=== PATIENT | male | born 1935 | race Caucasian/White ===

== ENCOUNTER 2018-05-30 02:55 | Inpatient (IN) | payer MEDICARE ==
[~2018-05-30] VITALS: Ht 182.9 cm; Wt 64.7 kg
[~2018-05-30 02:55] MED LIST: CALC-362 PO; CHOL200040 PO; CIPR500T87 PO; DONE5TAB7 PO; MEMA28CA PO; METO25TA35 PO; OMEP-110 PO
[2018-05-30] MEDS ORDERED: AMLO10TA2 PO (03:19)
[2018-05-30] MEDS ORDERED: MEMA10TA PO (03:19)
[2018-05-30 03:43] LABS: ALANINE AMINOTRANSFERASE 14 U/L (12-78); ALBUMIN 3.2 g/dL (3.4-5.0); ANION GAP 7 mmol/L (5-15); CALCIUM 8.5 mg/dL (8.5-10.1); CHLORIDE 111 mmol/L (98-107); CREATININE 1.21 mg/dL (0.7-1.3)
[2018-05-30 03:45] LABS: ALKALINE PHOSPHATASE 64 U/L (45-117); BILIRUBIN,TOTAL 0.8 mg/dL (0.2-1.0); TOTAL PROTEIN 6.3 g/dL (6.4-8.2)
[2018-05-30 03:51] LABS: BASOPHILS # (AUTO) 0.08 x10^3/uL (0-0.1); BASOPHILS % (AUTO) 1 % (0-1); EOSINOPHILS # (AUTO) 0.39 x10^3/uL (0-0.4); EOSINOPHILS % (AUTO) 4 % (1-7); LYMPHOCYTES # (AUTO) 2.32 x10^3/uL (1-3.4); LYMPHOCYTES % (AUTO) 22 % (22-44); MD NO; MEAN CORPUSCULAR HEMOGLOBIN 30.8 pg (27.5-34.5); MEAN CORPUSCULAR HGB CONC 33.6 g/dL (33.2-36.2); MEAN CORPUSCULAR VOLUME 91.9 fL (81-97); MONOCYTES # (AUTO) 0.84 x10^3/uL (0.2-0.8); MONOCYTES % (AUTO) 8 % (2-9); NEUTROPHILS # (AUTO) 6.93 x10^3/uL (1.8-6.8); NEUTROPHILS % (AUTO) 66 % (42-75); PLATELET COUNT 251 x10^3/uL (130-400); RED BLOOD COUNT 4.72 x10^6/uL (4.38-5.82); RED CELL DISTRIBUTION WIDTH 13.9 % (9.4-14.8)
[2018-05-30 05:11] LABS: MICROSCOPIC AUTO
[2018-05-30 05:15] LABS: CULTURE INDICATED? NO
[2018-05-30] MEDS ORDERED: DOCUSATE 100 MG CAPSULE PO PRN (07:30)
[2018-05-30] MEDS ORDERED: ONDANSETRON 2MG/ML, 2ML IVPush PRN (07:30)
[2018-05-30] MEDS ORDERED: hydrALAzine 20 MG/ML, 1ML IVPush PRN (07:30)
[2018-05-30] MEDS ORDERED: PROMETHAZINE 25 MG/ML, 1ML IM PRN (07:30)
[2018-05-30] MEDS ORDERED: BISACODYL 10 MG SUPP PR PRN (07:30)
[2018-05-30] MEDS ORDERED: POLYETHYLENE GLYCOL 17 GM PACKET PO PRN (07:30)
[2018-05-30] MEDS ORDERED: ACETAMINOPHEN 325 MG TABLET PO PRN (07:30)
[2018-05-30] MEDS ORDERED: ONDANSETRON ODT 4 MG PO PRN (07:30)
[2018-05-30] MEDS ORDERED: POTASSIUM CHLORIDE 20 MEQ TAB.ER.PRT PO ONE (07:30)
[2018-05-30 07:32] VITALS: BP 161/98
[2018-05-30 08:04] LABS: FREE T4 (FREE THYROXINE) 1.12 ng/dL (0.76-1.46); THYROID STIMULATING HORMONE 3.1 mIU/L (0.358-3.740)
[2018-05-30 08:25] LABS: HEMOGLOBIN A1C 6.6 % (4.2-6.3)
[2018-05-30] MEDS ORDERED: AMLODIPINE BESYLATE PO SCH (09:00)
[2018-05-30] MEDS: SODIUM CHLORIDE 0.9% 1,000 ML IV SCH ×2 (09:39→18:42)
[2018-05-30] MEDS: AMLODIPINE 5 MG TABLET PO SCH (09:40)
[2018-05-30] MEDS: CHOLECALCIFEROL 1,000 UNIT TABLET PO SCH (09:41)
[2018-05-30] MEDS: MEMANTINE 10MG TABLET PO SCH (09:41)
[2018-05-30 13:00] VITALS: BP 170/72
[2018-05-30 17:53] VITALS: BP 152/72
[2018-05-30 19:43] VITALS: BP 159/73
[2018-05-30] MEDS: METOPROLOL TARTRATE 25 MG TABLET PO SCH (23:35)
[2018-05-31 02:55] VITALS: BP 146/68
[2018-05-31 05:33] LABS: BASOPHILS # (AUTO) 0.02 x10^3/uL (0-0.1); BASOPHILS % (AUTO) 0 % (0-1); EOSINOPHILS % (AUTO) 0 % (1-7); LYMPHOCYTES % (AUTO) 8 % (22-44); MD NO; MEAN CORPUSCULAR HEMOGLOBIN 30.7 pg (27.5-34.5); MEAN CORPUSCULAR HGB CONC 33.3 g/dL (33.2-36.2); MEAN CORPUSCULAR VOLUME 92.2 fL (81-97); MEAN PLATELET VOLUME 8.4 fL (7.4-10.4); MONOCYTES # (AUTO) 1.11 x10^3/uL (0.2-0.8); MONOCYTES % (AUTO) 7 % (2-9); NEUTROPHILS # (AUTO) 13.49 x10^3/uL (1.8-6.8); NEUTROPHILS % (AUTO) 85 % (42-75); PLATELET COUNT 271 x10^3/uL (130-400)
[2018-05-31 05:46] LABS: ALBUMIN 3.2 g/dL (3.4-5.0); ANION GAP 10 mmol/L (5-15); CALCIUM 8.4 mg/dL (8.5-10.1); CHLORIDE 114 mmol/L (98-107)
[2018-05-31 05:51] LABS: ALANINE AMINOTRANSFERASE 13 U/L (12-78); ALKALINE PHOSPHATASE 65 U/L (45-117); BILIRUBIN,TOTAL 1.5 mg/dL (0.2-1.0); CHOL/HDL RATIO 3.9; CHOLESTEROL, TOTAL 170 mg/dL (140-239); CREATININE 2.04 mg/dL (0.7-1.3); HDL CHOL % 26 % (26-37); HDL CHOLESTEROL (DIRECT) 44 mg/dL (40-60); LDL CHOLESTEROL,CALCULATED 109 mg/dL (54-169); LDL/HDL RATIO 2.5 (0.5-3.0); TOTAL PROTEIN 6.2 g/dL (6.4-8.2); TRIGLYCERIDES 84 mg/dL (50-200); VLDL CHOLESTEROL 17 mg/dL (0-25)
[2018-05-31 08:05] VITALS: BP 131/68
[2018-05-31] MEDS: MEMANTINE 10MG TABLET PO SCH (09:00)
[2018-05-31] MEDS: AMLODIPINE 5 MG TABLET PO SCH (09:00)
[2018-05-31] MEDS: CHOLECALCIFEROL 1,000 UNIT TABLET PO SCH (09:00)
[2018-05-31 10:07] LABS: ANION GAP 10 mmol/L (5-15); CALCIUM 8.3 mg/dL (8.5-10.1); CHLORIDE 115 mmol/L (98-107)
[2018-05-31] MEDS: SODIUM CHLORIDE 0.9% 1,000 ML IV SCH ×2 (12:45→20:36)
[2018-05-31 13:00] VITALS: BP 119/63
[2018-05-31 16:26] LABS: MICROSCOPIC INDICATED
[2018-05-31 16:48] LABS: CULTURE INDICATED? NO
[2018-05-31 18:34] VITALS: BP 114/63
[2018-05-31] MEDS: METOPROLOL TARTRATE 25 MG TABLET PO SCH (20:36)
[2018-06-01 00:12] VITALS: BP 108/52
[2018-06-01] MEDS: SODIUM CHLORIDE 0.9% 1,000 ML IV SCH (04:11)
[2018-06-01 06:57] VITALS: BP 151/75
[2018-06-01] MEDS: AMLODIPINE 5 MG TABLET PO SCH (09:51)
[2018-06-01] MEDS: MEMANTINE 10MG TABLET PO SCH (09:51)
[2018-06-01] MEDS: CHOLECALCIFEROL 1,000 UNIT TABLET PO SCH (09:51)
[2018-06-01 10:34] LABS: ANION GAP 8 mmol/L (5-15); CALCIUM 7.7 mg/dL (8.5-10.1); CHLORIDE 114 mmol/L (98-107)
[2018-06-01 12:18] VITALS: BP 112/62
[2018-06-01] MEDS ORDERED: SODIUM CHLORIDE 0.9% 1,000 ML IV ONE (16:00)
[2018-06-01 19:05] VITALS: BP 125/65
[2018-06-01] MEDS: METOPROLOL TARTRATE 25 MG TABLET PO SCH (20:11)
[2018-06-02] MEDS: QUETIAPINE 25MG TABLET PO SCH ×2 (00:05→21:00)
[2018-06-02 01:07] VITALS: BP 106/64
[2018-06-02 07:05] VITALS: BP 160/80
[2018-06-02] MEDS: AMLODIPINE 5 MG TABLET PO SCH (11:28)
[2018-06-02] MEDS: MEMANTINE 10MG TABLET PO SCH (11:28)
[2018-06-02] MEDS: CHOLECALCIFEROL 1,000 UNIT TABLET PO SCH (11:28)
[2018-06-02 14:30] VITALS: BP 128/80
[2018-06-02 19:06] VITALS: BP 142/66
[2018-06-02] MEDS: METOPROLOL TARTRATE 25 MG TABLET PO SCH (20:51)
[2018-06-03] MEDS ORDERED: ZIPRASIDONE 20 MG INJ IM ONE (00:30)
[2018-06-03 01:00] VITALS: BP 125/66
[2018-06-03 08:24] VITALS: BP 145/77
[2018-06-03] MEDS: AMLODIPINE 5 MG TABLET PO SCH (10:14)
[2018-06-03] MEDS: MEMANTINE 10MG TABLET PO SCH (10:14)
[2018-06-03] MEDS: CHOLECALCIFEROL 1,000 UNIT TABLET PO SCH (10:14)
[2018-06-03 15:09] VITALS: BP 130/74
[2018-06-03 19:19] VITALS: BP 118/75
[2018-06-03] MEDS: METOPROLOL TARTRATE 25 MG TABLET PO SCH (19:48)
[2018-06-03] MEDS: QUETIAPINE 25MG TABLET PO SCH (19:48)
[2018-06-04 00:40] VITALS: BP 120/75
[2018-06-04 06:10] LABS: BASOPHILS # (AUTO) 0.01 x10^3/uL (0-0.1); BASOPHILS % (AUTO) 0 % (0-1); EOSINOPHILS # (AUTO) 0.44 x10^3/uL (0-0.4); EOSINOPHILS % (AUTO) 4 % (1-7); LYMPHOCYTES # (AUTO) 2.18 x10^3/uL (1-3.4); LYMPHOCYTES % (AUTO) 17 % (22-44); MD NO; MEAN CORPUSCULAR HEMOGLOBIN 30.9 pg (27.5-34.5); MEAN CORPUSCULAR HGB CONC 33.7 g/dL (33.2-36.2); MEAN CORPUSCULAR VOLUME 91.5 fL (81-97); MONOCYTES # (AUTO) 0.73 x10^3/uL (0.2-0.8); MONOCYTES % (AUTO) 6 % (2-9); NEUTROPHILS # (AUTO) 9.35 x10^3/uL (1.8-6.8); NEUTROPHILS % (AUTO) 74 % (42-75); PLATELET COUNT 213 x10^3/uL (130-400); RED BLOOD COUNT 4.71 x10^6/uL (4.38-5.82); RED CELL DISTRIBUTION WIDTH 13.8 % (9.4-14.8)
[2018-06-04 06:21] LABS: ALBUMIN 2.6 g/dL (3.4-5.0); ANION GAP 11 mmol/L (5-15); CALCIUM 8.2 mg/dL (8.5-10.1); CHLORIDE 108 mmol/L (98-107); CREATININE 0.77 mg/dL (0.7-1.3)
[2018-06-04 07:06] VITALS: BP 123/64
[2018-06-04] MEDS ORDERED: POTASSIUM CHLORIDE 20 MEQ TAB.ER.PRT PO ONE (08:00)
[2018-06-04] MEDS: CHOLECALCIFEROL 1,000 UNIT TABLET PO SCH ×2 (09:00→10:04)
[2018-06-04] MEDS ORDERED: POTASSIUM CHLORIDE 20 MEQ PACKET PO ONE (09:30)
[2018-06-04] MEDS: MEMANTINE 10MG TABLET PO SCH (10:03)
[2018-06-04] MEDS: AMLODIPINE 5 MG TABLET PO SCH (10:04)
[2018-06-04] MEDS ORDERED: POTASSIUM CHLORIDE 40 MEQ in SODIUM CHLORIDE 0.9% 500 ML IV ONE (11:00)
[2018-06-04 13:16] VITALS: BP 128/72
[2018-06-04] MEDS: ENOXAPARIN 40 MG/0.4 ML SQ SCH (15:15)
[2018-06-04] MEDS: D5%-0.45NACL+KCL 20MEQ 1,000 ML IV SCH (17:42)
[2018-06-04 19:11] VITALS: BP 127/72
[2018-06-04] MEDS: METOPROLOL TARTRATE 25 MG TABLET PO SCH (20:55)
[2018-06-04] MEDS: QUETIAPINE 25MG TABLET PO SCH (20:55)
[2018-06-05 01:26] VITALS: BP 111/69
[2018-06-05] MEDS: D5%-0.45NACL+KCL 20MEQ 1,000 ML IV SCH ×2 (04:10→20:41)
[2018-06-05 05:31] LABS: BASOPHILS # (AUTO) 0.05 x10^3/uL (0-0.1); BASOPHILS % (AUTO) 0 % (0-1); EOSINOPHILS # (AUTO) 0.35 x10^3/uL (0-0.4); EOSINOPHILS % (AUTO) 3 % (1-7); LYMPHOCYTES # (AUTO) 2.15 x10^3/uL (1-3.4); LYMPHOCYTES % (AUTO) 16 % (22-44); MD NO; MEAN CORPUSCULAR HEMOGLOBIN 30.3 pg (27.5-34.5); MEAN CORPUSCULAR HGB CONC 33.2 g/dL (33.2-36.2); MEAN CORPUSCULAR VOLUME 91.2 fL (81-97); MEAN PLATELET VOLUME 8.4 fL (7.4-10.4); MONOCYTES # (AUTO) 1.21 x10^3/uL (0.2-0.8); MONOCYTES % (AUTO) 9 % (2-9); NEUTROPHILS # (AUTO) 9.32 x10^3/uL (1.8-6.8); NEUTROPHILS % (AUTO) 71 % (42-75); PLATELET COUNT 207 x10^3/uL (130-400); RED BLOOD COUNT 4.79 x10^6/uL (4.38-5.82); RED CELL DISTRIBUTION WIDTH 13.5 % (9.4-14.8)
[2018-06-05 05:48] LABS: CHLORIDE 114 mmol/L (98-107)
[2018-06-05 05:56] LABS: ANION GAP 7 mmol/L (5-15); CALCIUM 7.8 mg/dL (8.5-10.1); CREATININE 0.71 mg/dL (0.7-1.3)
[2018-06-05] MEDS ORDERED: POTASSIUM CHLORIDE 40 MEQ in SODIUM CHLORIDE 0.9% 500 ML IV ONE (07:00)
[2018-06-05 08:12] VITALS: BP 119/73
[2018-06-05] MEDS: MEMANTINE 10MG TABLET PO SCH (09:01)
[2018-06-05] MEDS: AMLODIPINE 5 MG TABLET PO SCH (09:01)
[2018-06-05] MEDS: CHOLECALCIFEROL 1,000 UNIT TABLET PO SCH (09:02)
[2018-06-05 14:06] VITALS: BP 128/80
[2018-06-05] MEDS: ENOXAPARIN 40 MG/0.4 ML SQ SCH (15:36)
[2018-06-05 18:47] VITALS: BP 151/82
[2018-06-05 19:38] VITALS: BP 137/83
[2018-06-05] MEDS: METOPROLOL TARTRATE 25 MG TABLET PO SCH (20:41)
[2018-06-05] MEDS: QUETIAPINE 25MG TABLET PO SCH (20:41)
[2018-06-06 00:48] VITALS: BP 130/70
[2018-06-06 05:30] LABS: ALBUMIN 2.4 g/dL (3.4-5.0); ANION GAP 6 mmol/L (5-15); CALCIUM 7.9 mg/dL (8.5-10.1); CHLORIDE 109 mmol/L (98-107); CREATININE 0.73 mg/dL (0.7-1.3)
[2018-06-06 05:43] LABS: BASOPHILS # (AUTO) 0.05 x10^3/uL (0-0.1); BASOPHILS % (AUTO) 1 % (0-1); EOSINOPHILS # (AUTO) 0.58 x10^3/uL (0-0.4); EOSINOPHILS % (AUTO) 6 % (1-7); LYMPHOCYTES # (AUTO) 2.08 x10^3/uL (1-3.4); LYMPHOCYTES % (AUTO) 22 % (22-44); MD NO; MEAN CORPUSCULAR HEMOGLOBIN 30.5 pg (27.5-34.5); MEAN CORPUSCULAR HGB CONC 33.3 g/dL (33.2-36.2); MEAN CORPUSCULAR VOLUME 91.7 fL (81-97); MEAN PLATELET VOLUME 8.7 fL (7.4-10.4); MONOCYTES % (AUTO) 10 % (2-9); NEUTROPHILS # (AUTO) 5.92 x10^3/uL (1.8-6.8); NEUTROPHILS % (AUTO) 62 % (42-75); PLATELET COUNT 227 x10^3/uL (130-400); RED BLOOD COUNT 4.66 x10^6/uL (4.38-5.82)
[2018-06-06 07:03] VITALS: BP 148/70
[2018-06-06] MEDS: D5%-0.45NACL+KCL 20MEQ 1,000 ML IV SCH ×2 (07:52→16:57)
[2018-06-06] MEDS: MEMANTINE 10MG TABLET PO SCH (08:35)
[2018-06-06] MEDS: AMLODIPINE 5 MG TABLET PO SCH (08:35)
[2018-06-06] MEDS: CHOLECALCIFEROL 1,000 UNIT TABLET PO SCH (08:35)
[2018-06-06 14:00] VITALS: BP 113/70
[2018-06-06] MEDS: ENOXAPARIN 40 MG/0.4 ML SQ SCH (15:15)
[2018-06-06 18:46] VITALS: BP 157/82
[2018-06-06] MEDS: QUETIAPINE 25MG TABLET PO SCH (20:15)
[2018-06-06] MEDS: METOPROLOL TARTRATE 25 MG TABLET PO SCH (20:15)
[2018-06-07 02:38] VITALS: BP 135/79
[2018-06-07] MEDS: D5%-0.45NACL+KCL 20MEQ 1,000 ML IV SCH ×2 (05:45→19:50)
[2018-06-07 07:05] VITALS: BP 152/66
[2018-06-07] MEDS: AMLODIPINE 5 MG TABLET PO SCH (09:31)
[2018-06-07] MEDS: CHOLECALCIFEROL 1,000 UNIT TABLET PO SCH (09:31)
[2018-06-07] MEDS: MEMANTINE 10MG TABLET PO SCH (09:31)
[2018-06-07 14:46] VITALS: BP 135/80
[2018-06-07] MEDS: ENOXAPARIN 40 MG/0.4 ML SQ SCH (16:16)
[2018-06-07 19:13] VITALS: BP 121/76
[2018-06-07] MEDS: QUETIAPINE 25MG TABLET PO SCH (19:50)
[2018-06-07] MEDS: METOPROLOL TARTRATE 25 MG TABLET PO SCH (19:50)
[2018-06-08 00:44] VITALS: BP 131/72
[2018-06-08 07:49] VITALS: BP 152/74
[2018-06-08] MEDS: D5%-0.45NACL+KCL 20MEQ 1,000 ML IV SCH (09:00)
[2018-06-08] MEDS: AMLODIPINE 5 MG TABLET PO SCH (09:59)
[2018-06-08] MEDS: CHOLECALCIFEROL 1,000 UNIT TABLET PO SCH (09:59)
[2018-06-08] MEDS: MEMANTINE 10MG TABLET PO SCH (09:59)
[2018-06-08 15:00] VITALS: BP 152/74
[2018-06-08] MEDS: ENOXAPARIN 40 MG/0.4 ML SQ SCH (16:53)
[2018-06-08 17:35] VITALS: BP 132/77
[2018-06-08 18:41] VITALS: BP 131/77
[2018-06-08] MEDS: METOPROLOL TARTRATE 25 MG TABLET PO SCH (20:46)
[2018-06-08] MEDS: QUETIAPINE 25MG TABLET PO SCH (20:46)
[2018-06-09 01:31] VITALS: BP 147/71
[2018-06-09 04:51] LABS: ALBUMIN 2.7 g/dL (3.4-5.0); CALCIUM 8.6 mg/dL (8.5-10.1); CHLORIDE 106 mmol/L (98-107)
[2018-06-09 04:54] LABS: ANION GAP 8 mmol/L (5-15); CREATININE 0.75 mg/dL (0.7-1.3)
[2018-06-09] MEDS: AMLODIPINE 5 MG TABLET PO SCH (08:45)
[2018-06-09] MEDS: CHOLECALCIFEROL 1,000 UNIT TABLET PO SCH (08:45)
[2018-06-09] MEDS: MEMANTINE 10MG TABLET PO SCH (08:45)
[2018-06-09 08:52] VITALS: BP 133/76
[2018-06-09 14:05] VITALS: BP 133/67
[2018-06-09] MEDS: ENOXAPARIN 40 MG/0.4 ML SQ SCH (16:17)
[2018-06-09 19:03] VITALS: BP 136/72
[2018-06-09] MEDS: QUETIAPINE 25MG TABLET PO SCH (19:21)
[2018-06-09] MEDS: METOPROLOL TARTRATE 25 MG TABLET PO SCH (19:21)
[2018-06-10 00:35] VITALS: BP 151/70
[2018-06-10 07:58] VITALS: BP 111/68
[2018-06-10] MEDS: AMLODIPINE 5 MG TABLET PO SCH (11:00)
[2018-06-10] MEDS: CHOLECALCIFEROL 1,000 UNIT TABLET PO SCH (11:00)
[2018-06-10] MEDS: MEMANTINE 10MG TABLET PO SCH (11:00)
[2018-06-10 12:30] VITALS: BP 133/73
== END 2018-06-10 17:49 | DRG 682 ==
LOC: ED 03:41 → EDIP 05:21 → 3NE 06:47
PROVIDERS: ADMIT Internal Medicine; ATTEND Internal Medicine
DX: N17.9 Acute kidney failure, unspecified (principal); E43 Unspecified severe protein-calorie malnutrition; F03.91 Unspecified dementia, unspecified severity, with behavioral disturbance; Z68.1 Body mass index [BMI] 19.9 or less, adult; D72.829 Elevated white blood cell count, unspecified; R31.29 Other microscopic hematuria; R62.7 Adult failure to thrive; I10 Essential (primary) hypertension; E87.6 Hypokalemia; E11.9 Type 2 diabetes mellitus without complications; Z85.46 Personal history of malignant neoplasm of prostate; Z79.899 Other long term (current) drug therapy
CPT/HCPCS: 36415; 80048; 80053; 80061; 81001; 82040; 83036; 83735; 84439; 84443; 85025; 87040; 99285; J1650; J3480; J3486; J7030; J7040